=== PATIENT | male | born 1995 | race Caucasian/White ===

== ENCOUNTER 2023-08-09 17:26 | Emergency (ER) | payer OTHER ==
[2023-08-09] MEDS ORDERED: dexAMETHasone 10 MG/ML VIAL ONE (17:43)
[2023-08-09] MEDS ORDERED: FAMOTIDINE 20 MG TAB ONE (17:43)
--- NOTE | 2023-08-09 18:48 | ER ---
Nurse's Notes [facility] Name: Cholo Lee Age: 27 yrs Sex: Male : 1995 Arrival Date: 08/09/2023 Time: 17:26 Bed IW1 Private MD: Diagnosis: Allergic contact dermatitis, unspecified cause Presentation: 08/08 17:38 Chief complaint: Patient states: allergic to cats, taking antihistamines with no help, ko1 mostly rash to arms. Coronavirus screen: At this time, the client does not indicate any symptoms associated with coronavirus-19. Ebola Screen: No symptoms or risks identified at this time. Onset: The symptoms/episode began/occurred gradually. Anaphylaxis evaluation, the patient reports or I have noted the following symptoms which indicate a significant risk of anaphylaxis: no signs or symptoms of anaphylaxis were noted rash. Initial Sepsis Screen: Does the patient meet any 2 criteria? No. Patient's initial sepsis screen is negative. Does the patient have a suspected source of infection? No. Patient's initial sepsis screen is negative. Risk Assessment: Do you want to hurt yourself or someone else? Patient reports no desire to harm self or others. Onset of symptoms was August 09, 2023. 17:38 Method Of Arrival: Ambulatory ko1 17:38 Acuity: ARETHA 4 ko1 Triage Assessment: 17:41 General: Appears in no apparent distress. Behavior is calm, cooperative, appropriate ko1 for age. Pain: Denies pain. Derm: Rash noted that is red, on face and left arm and right arm. Historical: - Allergies: 17:41 PENICILLINS; ko1 - PMHx: 17:41 None; ko1 - PSHx: 17:41 None; ko1 - Immunization history:: Adult Immunizations unknown. - Infectious Disease History:: Denies. - Social history:: Smoking status: Patient denies any tobacco usage or history of. Assessment: 18:54 General: Appears in no apparent distress. Behavior is calm, cooperative. Pain: Denies hb pain. Neuro: Level of Consciousness is awake, alert, obeys commands, Oriented to person, place, time, situation. Cardiovascular: Patient's skin is warm and dry. Respiratory: Airway is patent Respiratory effort is even, unlabored, Respiratory pattern is regular, symmetrical. Derm: diffuse rash. Vital Signs: 17:38 BP 134 / 78; Pulse 84; Resp 16; Temp 98; Pulse Ox 99% ; ko1 ED Course: 17:30 Patient arrived in ED. mg5 17:32 Yesenia Beltran FNP-C is [facility]. kb 17:32 Juan Claros DO is Attending Physician. kb 17:41 Triage completed. ko1 17:41 Arm band placed on right wrist. Patient placed in waiting room, Patient notified of ko1 wait time. Administered Medications: 17:45 Drug: Dexamethasone IM 10 mg IM once Route: IM; Site: left deltoid; ko1 17:45 Drug: Famotidine PO 20 mg PO once Route: PO; ko1 Outcome: 18:47 Discharge ordered by MD. kb 18:54 Discharged to home ambulatory, hb 18:54 Condition: stable 18:54 Discharge instructions given to patient, Instructed on discharge instructions, follow up and referral plans. medication usage, Demonstrated understanding of instructions, follow-up care, medications, Prescriptions given X 2, 18:55 Patient left the ED. hb Signatures: Yesenia Beltran FNP-C FNP-Ckb Baxter, Heather RN RN Judy Durham, LEYDI RN ko1 Annalisa Garrison mg5 Corrections: (The following items were deleted from the chart) 17:41 17:41 Allergies: No Known Allergies; ko1 ko1
--- NOTE | 2023-08-09 18:48 | EDPHYS ---
Physician Documentation [facility] Name: Cholo Lee Age: 27 yrs Sex: Male : 1995 Arrival Date: 08/09/2023 Time: 17:26 Bed IW1 Private MD: ED Physician Juan Claros HPI: 08/08 17:33 This 27 yrs old Male presents to ER via Unassigned with complaints of Allergic Reaction.kb 17:33 Pt is a 27 year old male who presents for rash for one week. States he has been taking kb antihistamines without relief. States he is having an allergic reaction to cats. Denies shortness of breath. States the rash is spreading. . Historical: - Allergies: 17:41 PENICILLINS; ko1 - PMHx: 17:41 None; ko1 - PSHx: 17:41 None; ko1 - Immunization history:: Adult Immunizations unknown. - Infectious Disease History:: Denies. - Social history:: Smoking status: Patient denies any tobacco usage or history of. ROS: 17:35 Constitutional: As per HPI kb Exam: 17:35 Constitutional: This is a well developed, well nourished patient who is awake, alert, kb and in no acute distress. Head/Face: Normocephalic, atraumatic. ENT: Moist Mucous membranes Cardiovascular: Regular rate Respiratory: Respirations even and unlabored. No increased work of breathing. Talking in full sentences Abdomen/GI: Soft, non-tender. No distention MS/ Extremity: Pulses equal, no cyanosis. Neurovascular intact. Full, normal range of motion. Neuro: Awake and alert, GCS 15, oriented to person, place, time, and situation. Moves all extremities. Normal gait. 17:35 Skin: consistent with contact dermatitis, on the face, right arm and left arm, Vital Signs: 17:38 BP 134 / 78; Pulse 84; Resp 16; Temp 98; Pulse Ox 99% ; ko1 MDM: 17:32 Patient medically screened. kb 17:35 Differential diagnosis: urticaria, contact dermatitis. Data reviewed: vital signs, kb nurses notes. Counseling: I had a detailed discussion with the patient and/or guardian regarding the historical points, exam findings, and any diagnostic results supporting the discharge/admit diagnosis, the need for outpatient follow up, a family practitioner, to return to the emergency department if symptoms worsen or persist or if there are any questions or concerns that arise at home. Administered Medications: 17:45 Drug: Dexamethasone IM 10 mg IM once Route: IM; Site: left deltoid; ko1 17:45 Drug: Famotidine PO 20 mg PO once Route: PO; ko1 Disposition: 17:38 I was immediately available on-site in the Emergency Department for consultation in the ms3 care of the patient. Disposition Summary: 08/09/23 18:47 Discharge Ordered Notes: Location: Home kb Condition: Stable kb Diagnosis - Allergic contact dermatitis, unspecified cause kb Followup: kb - With: Emergency Department - When: As needed - Reason: Worsening of condition Followup: kb - With: Private Physician - When: 2 - 3 days - Reason: Recheck today's complaints, Continuance of care, Re-evaluation by your physician Discharge Instructions: - Discharge Summary Sheet kb - Contact Dermatitis, [id number] kb Forms: - Medication Reconciliation Form kb - Antibiotic Education kb - Prescription Opioid Use kb - Patient Portal Instructions kb - Leadership Thank You Letter kb - Work release form hb Prescriptions: - Pepcid 20 mg Oral Tablet - take 1 tablet ORAL route every 12 hours for 5 days; 10 tablet; Refills: 0, kb Product Selection Permitted - Prednisone 20 mg Oral Tablet - take 1 tablet ORAL route once daily for 5 days; 5 tablet; Refills: 0, Product kb Selection Permitted Signatures: Yesenia Beltran FNP-C FNP-Juan Garcia DO DO ms3 Judy Durham RN RN ko1 Corrections: (The following items were deleted from the chart) 17:41 17:41 Allergies: No Known Allergies; ko1 ko1
[2023-08-09 19:08] VITALS: BP 134/78; TEMP 98; O2SAT 99
== END 2023-08-09 18:55 | disposition home or self-care (01) ==
LOC: ER 17:26
DX: L23.9 Allergic contact dermatitis, unspecified cause (principal); Z88.0 Allergy status to penicillin
CPT/HCPCS: 96372; 99284; J1100

== ENCOUNTER 2023-08-15 21:13 | Emergency (ER) | payer OTHER, SELFPAY ==
[2023-08-15] MEDS ORDERED: DIPHENHYDRAMINE 50 MG/ML VIAL ONE (22:33)
[2023-08-15] MEDS ORDERED: METHYLPREDNISOLONE 125 MG INJ ONE (22:33)
[2023-08-15] MEDS ORDERED: FAMOTIDINE 20 MG/2 ML VIAL IV ONE (22:33)
--- NOTE | 2023-08-15 23:31 | ER ---
Nurse's Notes [facility] Name: Cholo Lee Age: 27 yrs Sex: Male : 1995 Arrival Date: 08/15/2023 Time: 21:13 Bed 17 Private MD: Diagnosis: Acute allergic reaction, acute allergic hives Presentation: 08/14 21:44 Chief complaint: Patient states: Exposed to girlfriends cats and is now having an cm10 allergic reaction. Pt noted to have hives to arms and right eye. Coronavirus screen: Client denies travel out of the [place] in the last 14 days. At this time, the client does not indicate any symptoms associated with coronavirus-19. Ebola Screen: Patient denies travel to an Ebola-affected area in the 21 days before illness onset. No symptoms or risks identified at this time. Onset: The symptoms/episode began/occurred yesterday. Anaphylaxis evaluation, no signs or symptoms of anaphylaxis were noted. Initial Sepsis Screen: Does the patient meet any 2 criteria? No. Patient's initial sepsis screen is negative. Does the patient have a suspected source of infection? No. Patient's initial sepsis screen is negative. Risk Assessment: Do you want to hurt yourself or someone else? Patient reports no desire to harm self or others. Onset of symptoms was August 15, 2023. 21:44 Method Of Arrival: Ambulatory 10 21:44 Acuity: ARETHA 4 cm10 Triage Assessment: 23:42 General: Behavior is calm, cooperative, appropriate for age. [facility] Historical: - Allergies: 21:45 PENICILLINS; cm10 21:45 Cats; cm10 - PMHx: 21:45 None; cm10 - Immunization history:: Adult Immunizations up to date. - Infectious Disease History:: Denies. - Social history:: Smoking status: Patient denies any tobacco usage or history of. - Family history:: not pertinent. Screenin:42 [facility] ED Fall Risk Assessment (Adult) History of falling in the last 3 months, [facility] including since admission No falls in past 3 months (0 pts) Confusion or Disorientation No (0 pts) Intoxicated or Sedated No (0 pts) Impaired Gait No (0 pts) Mobility Assist Device Used No (0 pt) Altered Elimination No (0 pt) Score/Fall Risk Level 0 - 2 = Low Risk Oriented to surroundings, Maintained a safe environment, Educated pt \T\ family on fall prevention, incl call for assistance when getting out of bed. Abuse screen: Denies threats or abuse. Denies injuries from another. Nutritional screening: No deficits noted. Tuberculosis screening: No symptoms or risk factors identified. Assessment: 22:45 General: Appears uncomfortable, well groomed, well developed, well nourished. Pain: jh8 Denies pain. Neuro: Level of Consciousness is awake, alert, obeys commands, Oriented to person, place, time, situation, Appropriate for age. Cardiovascular: Capillary refill < 3 seconds is brisk Patient's skin is warm and dry. Chest pain is denied. Respiratory: Airway is patent Respiratory effort is even, unlabored, Breath sounds are clear bilaterally. Derm: Rash noted that is itchy, red. Vital Signs: 21:44 BP 134 / 84; Pulse 78; Resp 18; Temp 97.8; Pulse Ox 98% on R/A; Weight 117.93 kg; cm10 Height 6 ft. 1 in. ; Pain 0/10; 21:44 Body Mass Index 34.30 (117.93 kg, 185.42 cm) cm10 21:44 Pain Scale: Adult cm10 Nigel Coma Score: 08/15 03:05 Eye Response: spontaneous(4). Motor Response: obeys commands(6). Verbal Response: sp4 oriented(5). Total: 15. ED Course: 08/14 21:18 Patient arrived in ED. gm2 21:45 Triage completed. cm10 21:46 Arm band placed on Patient placed in waiting room. cm10 21:56 Neto Guerin MD is Attending Physician. sp4 22:47 Patient has correct armband on for positive identification. Bed in low position. Call jh8 light in reach. Side rails up X 1. Valuables Left with patient. Provided Education on: meds. Door closed. Warm blanket given. Verbal reassurance given. 22:48 No provider procedures requiring assistance completed. Inserted saline lock: 22 gauge jh8 in right hand, using aseptic technique. 23:03 Inserted saline lock: 22 gauge in right hand, using aseptic technique. jh8 23:43 intact, bleeding controlled, No redness/swelling at site. Pressure dressing applied. jh8 Administered Medications: 22:44 Drug: diphenhydrAMINE IVP 50 mg IVP once Route: IVP; Site: right hand; 8 23:40 Follow up: Response: No adverse reaction 8 22:45 Drug: MethylPrednisoLONE IVP 125 mg IVP once Route: IVP; Site: right hand; jh8 23:40 Follow up: Response: No adverse reaction [facility] 22:45 Drug: Famotidine IVP 20 mg IVP once; dilute with 10 mL 0.9% NaCl; give over 2 minutes jh8 Route: IVP; Site: right hand; 23:40 Follow up: Response: No adverse reaction [facility] Medication: 23:42 VIS not applicable for this client. 8 Outcome: 23:31 Discharge ordered by . vanesa 23:43 Discharged to home ambulatory, [facility] 23:43 Condition: good 23:43 Discharge instructions given to patient, Instructed on discharge instructions, follow up and referral plans. medication usage, Demonstrated understanding of instructions, follow-up care, medications, Prescriptions given X 2, 23:44 Patient left the ED. vc1 Signatures: Shawnee Frank RN RN vc1 Neto Guerin MD MD sp4 Dannielle Head RN RN cm10 Mandi Florentino 2 Altaf Almeida RN RN jh8
--- NOTE | 2023-08-15 23:31 | EDPHYS ---
Physician Documentation [facility] Name: Cholo Lee Age: 27 yrs Sex: Male : 1995 Arrival Date: 08/15/2023 Time: 21:13 Bed 17 Private MD: ED Physician Neto Guerin HPI: 08/14 21:56 This 27 yrs old Male presents to ER via Ambulatory with complaints of sp4 Allergic Reaction. 08/15 03:05 27-year-old male presents with acute rash indicative of allergic reaction. Patient sp4 states he was exposed to cats and he is allergic to cats. Patient reports redness and irritation to the right side of the face, bilateral upper extremities, and trunk.. Historical: - Allergies: 08/14 21:45 PENICILLINS; cm10 21:45 Cats; cm10 - PMHx: 21:45 None; cm10 - Immunization history:: Adult Immunizations up to date. - Infectious Disease History:: Denies. - Social history:: Smoking status: Patient denies any tobacco usage or history of. - Family history:: not pertinent. ROS: 08/15 03:05 Constitutional: Negative for fever, chills, and weight loss, positive rash or redness sp4 and hives. All other systems are negative, Exam: 03:05 Constitutional: This is a well developed, well nourished patient who is awake, alert, sp4 and in no acute distress. Head/Face: Normocephalic, atraumatic. Eyes: Pupils equal round and reactive to light, extra-ocular motions intact. Lids and lashes normal. Conjunctiva and sclera are not injected. Cornea within normal limits. Periorbital areas with no swelling, redness, or edema. ENT: Nares patent. No nasal discharge, no septal abnormalities noted. Tympanic membranes are normal and external auditory canals are clear. Oropharynx with no redness, swelling, or masses, exudates, or evidence of obstruction, uvula midline. Mucous membranes moist. Neck: Trachea midline, no thyromegaly or masses palpated, and no cervical lymphadenopathy. Supple, full range of motion without nuchal rigidity, or vertebral point tenderness. Chest/axilla: Normal chest wall appearance and motion. Nontender with no deformity. No lesions are appreciated. Cardiovascular: Regular rate and rhythm with a normal S1 and S2. No gallops, murmurs, or rubs. Normal PMI, no JVD. No pulse deficits. Respiratory: Lungs have equal breath sounds bilaterally, clear to auscultation and percussion. No rales, rhonchi or wheezes noted. No increased work of breathing, no retractions or nasal flaring. Abdomen/GI: Soft, with normal bowel sounds. No distension or tympany. No guarding or rebound. No evidence of tenderness throughout. Back: No spinal tenderness. No costovertebral tenderness. Skin: Warm, dry with normal turgor. Normal color with right facial redness and irritation allergic hives to the right side of the face also right periorbital hives also bilateral upper extremity hives. MS/ Extremity: Pulses equal, no cyanosis. Neurovascular intact. Full, normal range of motion. Neuro: Awake and alert, GCS 15, oriented to person, place, time, and situation. Cranial nerves II-XII grossly intact. Motor strength 5/5 in all extremities. Sensory grossly intact. Psych: Awake, alert, with orientation to person, place and time. Behavior, mood, and affect are within normal limits Vital Signs: 08/14 21:44 BP 134 / 84; Pulse 78; Resp 18; Temp 97.8; Pulse Ox 98% on R/A; Weight 117.93 kg; cm10 Height 6 ft. 1 in. ; Pain 0/10; 21:44 Body Mass Index 34.30 (117.93 kg, 185.42 cm) cm10 21:44 Pain Scale: Adult cm10 Nigel Coma Score: 08/15 03:05 Eye Response: spontaneous(4). Motor Response: obeys commands(6). Verbal Response: sp4 oriented(5). Total: 15. MDM: 08/14 22:02 Patient medically screened. sp4 08/15 03:07 Differential diagnosis: anaphylaxis, angioedema, bronchospasm, urticaria. Data sp4 reviewed: vital signs, nurses notes. ED course: Patient has significantly improved after IV medications. Patient stable for discharge home.. 08/14 22:02 Order name: Saline Lock; Complete Time: 22:44 sp4 Administered Medications: 08/14 22:44 Drug: diphenhydrAMINE IVP 50 mg IVP once Route: IVP; Site: right hand; [facility] 23:40 Follow up: Response: No adverse reaction [facility] 22:45 Drug: MethylPrednisoLONE IVP 125 mg IVP once Route: IVP; Site: right hand; [facility] 23:40 Follow up: Response: No adverse reaction [facility] 22:45 Drug: Famotidine IVP 20 mg IVP once; dilute with 10 mL 0.9% NaCl; give over 2 minutes jh8 Route: IVP; Site: right hand; 23:40 Follow up: Response: No adverse reaction [facility] Disposition Summary: 08/15/23 23:31 Discharge Ordered Notes: Location: Home sp4 Problem: new sp4 Symptoms: have improved sp4 Condition: Stable sp4 Diagnosis - Acute allergic reaction, acute allergic hives sp4 Followup: sp4 - With: Private Physician - When: 7 - 10 days - Reason: Recheck today's complaints Discharge Instructions: - Discharge Summary Sheet sp4 - Hives, [id number] sp4 Forms: - Patient Portal Instructions sp4 Prescriptions: - Prednisone 20 mg Oral Tablet - take 2 tablets ORAL route once daily for 5 days; 10 tablet; Refills: 0, Product sp4 Selection Permitted Signatures: Neto Guerin MD MD sp4 Dannielle Head RN RN cm10 Altaf Almeida RN RN jh8
[2023-08-16 01:04] VITALS: BP 134/84; TEMP 97.8; O2SAT 98
== END 2023-08-15 23:44 | disposition home or self-care (01) ==
LOC: ER 21:13
DX: L50.0 Allergic urticaria (principal)
CPT/HCPCS: 96374; 96375; 99284; J1200; J2919